=== PATIENT | female | born 2000 | race Caucasian/White ===

== ENCOUNTER 2023-04-28 02:26 | Emergency (ER) | payer MEDICAID, SELFPAY ==
[2023-04-28 02:30] VITALS: BP 135/72; PULSE 77; RESP 16; TEMP 36.3; O2SAT 100; BMI 26.6
--- NOTE | 2023-04-28 02:41 | ED_ITS ---
HPI - Female Genitourinary General Chief complaint: Urogenital-Female Stated complaint: uti Time Seen by Provider: 04/28/23 02:35 Source: patient Mode of arrival: walk-in History of Present Illness HPI Narrative: presents complaining of dysuria that started yesterday AM. History of UTI for past 3 years. Has nausea but not vomiting or fever or flank pain MD elicited complaint: Reports dysuria Related Data Allergies Allergy/AdvReac Type Severity Reaction Status Date / Time Penicillins Allergy Mild Hives Verified 04/28/23 02:36 Review of Systems ROS Status of ROS 10 or more systems reviewed and unremarkable except as noted in history and below PFSH PFS Social History Smoking status: Never smoker Exam Constitutional Vital Signs, click to edit/add: Last Vital Signs Temp 97.4 F L 04/28/23 02:30 Pulse 77 04/28/23 02:30 Resp 16 04/28/23 02:30 BP 135/72 04/28/23 02:30 Pulse Ox 100 04/28/23 02:30 O2 Del Method Room Air 04/28/23 02:30 Common normals: no apparent distress, average body habitus, oriented x3, no limitations, healthy appearing, alert and well nourished Eye Common normals: EOMs intact bilaterally and conjunctivae normal Respiratory Common normals: normal respiratory effort, no retractions, no use of accessory muscles and clear to auscultation bilaterally Cardio Common normals: regular rate, regular rhythm, S1 normal heart sound and S2 normal heart sound GI Common normals: Normal to inspection, nondistended, normoactive bowel sounds present, soft to palpation and non-tender Extremity Common normals: normal to inspection and full ROM Neuro Common normals: oriented x3, CN's II-XII intact bilaterally, moves all extremities, no focal motor deficits and no sensory deficits noted Psych Appearance: grossly normal Course Vital Signs Vital signs: Vital Signs Temperature 97.4 F L 04/28/23 02:30 Pulse Rate 77 04/28/23 02:30 Respiratory Rate 16 04/28/23 02:30 Blood Pressure 135/72 04/28/23 02:30 Pulse Oximetry 100 04/28/23 02:30 Oxygen Delivery Method Room Air 04/28/23 02:30 Temperature 97.4 F L 04/28/23 02:30 Pulse Rate 77 04/28/23 02:30 Respiratory Rate 16 04/28/23 02:30 Blood Pressure 135/72 04/28/23 02:30 Pulse Oximetry 100 04/28/23 02:30 Oxygen Delivery Method Room Air 04/28/23 02:30 MDM - Female Genitourinary MDM Narrative Medical decision making narrative: past history of recurrent UTI. presents with dysuria and nausea. Exam normal. UA with 2-5 WBCs. Patient treated with bactrim ds and zofran and is to follow up with her family doctor Lab Data Labs: Lab Results 04/28/23 Range/Units 02:30 Urine Color Lt. yellow (YELLOW) Urine Clarity Clear (CLEAR) Urine pH 6.0 (5.0-9.0) Ur Specific [place] 1.020 (1.005-1.025) Urine Protein Negative (NEG/TRACE) mg/dL Urine Glucose (UA) Negative (NEGATIVE) mg/dL Urine Ketones Negative (NEGATIVE) mg/dL Urine Occult Blood Negative (NEGATIVE) Urine Nitrite Negative (NEGATIVE) Urine Bilirubin Negative (NEGATIVE) Urine Urobilinogen 0.2 (0.2-1.0) EU/dL Ur Leukocyte Esterase Trace A (NEGATIVE) Urine RBC 0-2 (0-2) #/HPF Urine WBC 2-5 A (NONE SEEN) #/HPF Ur Squamous Epith Cells Few A (NONE/RARE) #/LPF Urine Crystals None seen (None Seen) #/HPF Urine Bacteria Trace A (NONE SEEN) #/HPF Urine Casts None seen (NONE SEEN) #/LPF Urine Mucus None seen (NONE SEEN) Ur Culture Indicated? No Urine HCG, Qual Negative (NEGATIVE) Discharge Plan Discharge Chief Complaint: Urogenital-Female Clinical Impression: Dysuria Patient Disposition: Home, Self-Care Instructions: Dysuria (ED) Additional Instructions: follow up with your doctor for recheck in next 2-3 days Stand Alone Forms: Portal Instructions Referrals: GILES BANSAL [Primary Care Provider] - 1 week
[2023-04-28 02:42] LABS: Bilirubin Urine NEGATIVE (NEGATIVE); Blood Urine NEGATIVE (NEGATIVE); Clarity Urine CLEAR (CLEAR); Color Urine LT. YELLOW (YELLOW); Glucose Urine UA NEGATIVE (NEGATIVE); Ketones Urine NEGATIVE (NEGATIVE); Leukocyte Esterase Urine TRACE (NEGATIVE); Nitrite Urine NEGATIVE (NEGATIVE); Protein Urine NEGATIVE (NEG/TRACE); Urobilinogen Urine 0.2 EU/dL (0.2-1.0)
[2023-04-28 02:45] LABS: Urine Microscopic Indicated YES
[2023-04-28 02:46] LABS: HCG Qualitative Urine* NEGATIVE (NEGATIVE)
[2023-04-28 02:49] LABS: Bacteria Urine TRACE #/HPF (NONE SEEN); Cast Seen? NONE SEEN #/LPF (NONE SEEN); Crystals Seen? None Seen #/HPF (None Seen); Mucus Urine NONE SEEN (NONE SEEN); RBC Urine 0-2 #/HPF (0-2); Squamous Epithelial Cell Urine FEW #/LPF (NONE/RARE); Urine Culture Indicated NO
[2023-04-28] MEDS: ONDANSETRON 4 MG RAPDIS TABLET SL (03:01)
[2023-04-28] MEDS: PHENAZOPYRIDINE 100 MG TABLET 200 MG PO (04:00)
== END 2023-04-28 04:04 | disposition home or self-care (01) ==
PROVIDERS: Emergency Provider Internal Medicine; PCP Family Medicine
DX: R30.0 Dysuria (principal); Z87.440 Personal history of urinary (tract) infections
CPT/HCPCS: 81001; 84703; 99284

== ENCOUNTER 2023-05-29 16:55 | Emergency (ER) | payer MEDICAID, SELFPAY ==
[2023-05-29 17:01] VITALS: BP 128/65; PULSE 66; RESP 18; TEMP 36.4; O2SAT 99; BMI 26.6
--- NOTE | 2023-05-29 17:12 | XR_ITS ---
The [address] [address] Patient Name: GARETT ROCHAR MRN: [facility]:[id number] date: 2000 Sex: F Assigned Patient Location: ER Current Patient Location: ER Accession/Order Number: [id number] Exam Date: 05/29/2023 17:45 Report Date: 05/29/2023 18:05 At the request of: QUEENIE GONZALEZ Procedure: XR lumbar spine 2-3V EXAM: XR lumbar spine 2-3V HISTORY: Pain COMPARISON: None. TECHNIQUE: 3 views FINDINGS: Maintenance of the normal lumbar lordosis.. Vertebral body heights and alignments exhibit no fracture or listhesis. Intervertebral disc space heights are unremarkable. Stool throughout the colon and rectum. XR/XR lumbar spine 2-3V IMPRESSION: Normal lumbar spine x-rays Electronically authenticated by: DORA MOE Date: 05/29/2023 18:05
[2023-05-29 17:29] LABS: Bilirubin Urine NEGATIVE (NEGATIVE); Blood Urine NEGATIVE (NEGATIVE); Clarity Urine CLEAR (CLEAR); Color Urine LT. YELLOW (YELLOW); Glucose Urine UA NEGATIVE (NEGATIVE); Ketones Urine NEGATIVE (NEGATIVE); Leukocyte Esterase Urine NEGATIVE (NEGATIVE); Nitrite Urine NEGATIVE (NEGATIVE); Protein Urine NEGATIVE (NEG/TRACE); Specific Gravity Urine <=1.005 (1.005-1.025); Urobilinogen Urine 0.2 EU/dL (0.2-1.0)
[2023-05-29 17:30] LABS: HCG Qualitative Urine* NEGATIVE (NEGATIVE)
[2023-05-29 17:35] LABS: Bacteria Urine NONE SEEN #/HPF (NONE SEEN); Cast Seen? NONE SEEN #/LPF (NONE SEEN); Crystals Seen? None Seen #/HPF (None Seen); Mucus Urine NONE SEEN (NONE SEEN); RBC Urine NONE SEEN #/HPF (0-2); Squamous Epithelial Cell Urine NONE SEEN #/LPF (NONE/RARE); Urine Culture Indicated NO; WBC Urine NONE SEEN #/HPF (NONE SEEN)
--- NOTE | 2023-05-29 17:35 | ED_ITS ---
HPI - Back Pain/Injury General Chief Complaint: Back Pain/Injury Stated Complaint: Back Pain Time Seen by Provider: 05/29/23 16:56 Source: patient Mode of arrival: walk-in Limitations: no limitations History of Present Illness HPI Narrative: 22-year-old female presents for right lower back pain and it goes down the back of her right leg to her knee. No injury at anytime recently. She states that years ago she did have a back injury many years ago had an MRI. No dysuria or hematuria. It's worse in certain positions. Related Data Previous Rx's Medication Instructions Recorded cyclobenzaprine 10 mg tablet 10 mg PO TID PRN muscle spasm #20 05/29/23 tabs ibuprofen 800 mg tablet 800 mg PO Q8H PRN pain #20 tabs 05/29/23 Allergies Allergy/AdvReac Type Severity Reaction Status Date / Time Penicillins Allergy Mild Hives Verified 05/29/23 17:00 Review of Systems 2 ROS Narrative A ten point review of systems is negative except as noted above. PFSH PFSH Social History Smoking status: Never smoker Exam Narrative Exam Narrative: Nurses note and vital signs reviewed and patient is not hypoxic. General: The patient appears well and in no apparent distress. Patient is resting comfortably on cart. Skin: Warm, dry, no pallor noted. There is no rash noted. Head: Normocephalic, atraumatic Eye: Normal conjunctiva, no drainage Ears, Nose, Mouth, and Throat: oral mucosa is moist. Nares patent. Cardiovascular: Regular Rate and Rhythm Respiratory: Patient is in no distress, no accessory muscle use, lungs are clear to auscultation, no wheezing, rales or rhonchi Back: no bruise or rash. She has some tenderness in her right lower back. GI: soft and nontender Musculoskeletal: The patient has no evidence of calf tenderness, no pitting edema, symmetrical pulses noted bilaterally Neurological: A&O, normal speech Psychiatric: Cooperative Constitutional Vital Signs, click to edit/add: Last Vital Signs Temp 97.6 F 05/29/23 17:01 Pulse 66 05/29/23 17:01 Resp 18 05/29/23 17:01 BP 128/65 05/29/23 17:01 Pulse Ox 99 05/29/23 17:01 O2 Del Method Room Air 05/29/23 17:01 Course Vital Signs Vital signs: Vital Signs Temperature 97.6 F 05/29/23 17:01 Pulse Rate 66 05/29/23 17:01 Respiratory Rate 18 05/29/23 17:01 Blood Pressure 128/65 05/29/23 17:01 Pulse Oximetry 99 05/29/23 17:01 Oxygen Delivery Method Room Air 05/29/23 17:01 Temperature 97.6 F 05/29/23 17:01 Pulse Rate 66 05/29/23 17:01 Respiratory Rate 18 05/29/23 17:01 Blood Pressure 128/65 05/29/23 17:01 Pulse Oximetry 99 05/29/23 17:01 Oxygen Delivery Method Room Air 05/29/23 17:01 MDM - Back Pain/Injury MDM Narrative Medical decision making narrative: Urinalysis and tests are negative. Lumbar films show constipation but no acute findings in the lumbar spine. Findings were discussed with the patient and she'll be treated symptomatically. Treatment diagnosis and follow-up were discussed with the patient. Differential Diagnosis Differential diagnosis: Likely sciatica, strain of lumbar region and other (urinary tract infection) Lab Data Attestation: I reviewed the patient's lab results. Labs: Lab Results 05/29/23 Range/Units 17:23 Urine Color Lt. yellow (YELLOW) Urine Clarity Clear (CLEAR) Urine pH 6.0 (5.0-9.0) Ur Specific [place] <=1.005 A (1.005-1.025) Urine Protein Negative (NEG/TRACE) mg/dL Urine Glucose (UA) Negative (NEGATIVE) mg/dL Urine Ketones Negative (NEGATIVE) mg/dL Urine Occult Blood Negative (NEGATIVE) Urine Nitrite Negative (NEGATIVE) Urine Bilirubin Negative (NEGATIVE) Urine Urobilinogen 0.2 (0.2-1.0) EU/dL Ur Leukocyte Esterase Negative (NEGATIVE) Urine RBC None seen (0-2) #/HPF Urine WBC None seen (NONE SEEN) #/HPF Ur Squamous Epith Cells None seen (NONE/RARE) #/LPF Urine Crystals None seen (None Seen) #/HPF Urine Bacteria None seen (NONE SEEN) #/HPF Urine Casts None seen (NONE SEEN) #/LPF Urine Mucus None seen (NONE SEEN) Ur Culture Indicated? No Urine HCG, Qual Negative (NEGATIVE) Imaging Data lumbar x-rays: Radiologist's impression: Procedure: XR lumbar spine 2-3V EXAM: XR lumbar spine 2-3V HISTORY: Pain COMPARISON: None. TECHNIQUE: 3 views FINDINGS: Maintenance of the normal lumbar lordosis.. Vertebral body heights and alignments exhibit no fracture or listhesis. Intervertebral disc space heights are unremarkable. Stool throughout the colon and rectum. IMPRESSION: Normal lumbar spine x-rays Electronically authenticated by: DORA MOE Date: 05/29/2023 18:05 Discharge Plan Discharge Chief Complaint: Back Pain/Injury Clinical Impression: Low back pain, Constipation Patient Disposition: Home, Self-Care Time of Disposition Decision: 18:19 Condition: Good Mode of Transportation: Private Vehicle Prescriptions / Home Meds: New cyclobenzaprine 10 mg tablet 10 mg PO TID PRN (Reason: muscle spasm) Qty: 20 0RF ibuprofen 800 mg tablet 800 mg PO Q8H PRN (Reason: pain) Qty: 20 0RF Instructions: Constipation (ED), Back Pain (ED) Stand Alone Forms: Portal Instructions Referrals: GILES BANSAL [Primary Care Provider] - 1 week
== END 2023-05-29 18:29 | disposition home or self-care (01) ==
PROVIDERS: Emergency Provider Emergency Medicine; PCP Family Medicine
DX: K59.00 Constipation, unspecified (principal); M54.50 Low back pain, unspecified
CPT/HCPCS: 72100; 81001; 84703; 99284

== ENCOUNTER 2024-01-12 20:19 | Emergency (ER) | payer MEDICAID, SELFPAY ==
[2024-01-12 20:21] VITALS: BP 131/72; PULSE 90; TEMP 36.9; O2SAT 100; BMI 30.9
--- OUTSIDE RECORDS SUMMARY | 2024-01-12 20:24 | XMS_ITS | CCD ---
Author Organization [facility] Care Team Providers Care Founder And President Name Role Phone [place], Moe D Unavailable Unavailable Georgia, Moe D Unavailable Unavailable DUANE BANSAL~[phone] UNKNOWN Unavailable Unavailable DUANE BANSAL~[phone] UNKNOWN Unavailable Unavailable [place], Moe D Unavailable Unavailable Georgia, Moe D Unavailable Unavailable NONE, XXXX Unavailable Unavailable DUANE BANSAL~[phone] UNKNOWN Unavailable Unavailable [place], Moe D Unavailable Unavailable Georgia, Moe D Unavailable Unavailable DUANE BANSAL~[phone] UNKNOWN Unavailable Unavailable Georgia, Moe D Unavailable Unavailable Georgia, Moe D Unavailable Unavailable NONE, XXXX Unavailable Unavailable DUANE BANSAL~[phone] UNKNOWN Unavailable Unavailable ROLF, DR SKAGGS Primary Care Unavailable MARKER, DR FISH Attending Unavailable MARKER, DR FISH Consulting Unavailable MARKER, DR FISH Admitting Unavailable ALFONZO, DR OLIVER Renteria Admitting Unavailable ROLF, DR SKAGGS Primary Care Unavailable ALFONZO, DR OLIVER Renteria Attending Unavailable ALFONZO, DR OLIVER Renteria Consulting Unavailable DO Duane Bansal Primary Care Provider [phone] MD Obie Leos Attending Provider [phone] Duane Bansal Primary Care Unavailable Obie Leos Attending Unavailable Obie Leos Admitting Unavailable Obie Leos Unavailable LAZARO SANTIAGO Attending Unavailable JACOBY GONSALEZ Attending Unavailable DUANE BANSAL Attending Unavailable UNALLOCATED, NOMS PROVIDER Referring Unava ilIGOR Bond Attending Unavailable DUANE BANSAL Attending Unavailable DUANE BANSAL Referring Unavailable Allergies Allergy Classification Reported Allergen(s) Allergy Type Date of Onset Reaction(s) Facility (1 source) Midol Regular; Translations: [Midol Regular] Propensity to adverse reactions (disorder) AOF [facility] Repository (1 source) Sulfamethoxazole / Trimethoprim Drug Allergy 02-29-20 [facility] Repository (1 source) Penicillin Drug Allergy Unknown Codefast Other (1 source) Mydol Propensity to adverse reactions anxiety/panic attack [employer] [facility] [employer] Other Medications Current Medications Medication Drug Class(es) Dates Sig (Normalized) Sig (Original) sprintec 28 0.25-35 mg-mcg tablet (1 source) Progestin, Estrogen Sprintec 28 0.25-35 MG-MCG as directed Orally Active ibuprofen 600 mg oral tablet (1 source) Nonsteroidal Anti-inflammatory Drug Start: 09-03-2017 take 600 mg by mouth twice daily Ibuprofen Active 600 MG PO Twice daily September 03, 2017 12:00am Completed/Discontinued Medications Medication Drug Class(es) Dates Sig (Normalized) Sig (Original) Aircast Sport Ankle Brace/Rght (1 source) Start: 05-15-2015 [employer] Sport Ankle Brace/Rght as directed May, Not-Taking/PRN amoxicillin 500 mg oral capsule (1 source) Penicillin-class Antibacterial Start: 05-15-2015 take 1 capsule by mouth every twelve hours Amoxicillin 500 mg 1 capsule Orally, DO NOT FILL UNTIL 05/18/15 q 12 hrs for 10 day(s) May, Not-Taking/PRN Brompheniramine / Pseudoephedrine (1 source) alpha-Adrenergic Agonist Start: 05-15-2015 take 10 mL by mouth every six hours as needed Bromfed DM 30-2-10 MG/5ML 10 ml as needed Orally every 6 hrs, no other sources of brompheniramine, dextromethorphan, or pseudoephedrine for 3 days May, Not-Taking/PRN Problems Problem Classification Problem Date Documented Da te Episodic/Chronic Abdominal pain (1 source) Abdominal pain; Translations: [Unspecified abdominal pain] 09-03-2017 Episodic Genitourinary symptoms and ill-defined conditions (3 sources) Dysuria; Translations: [DYSURIA] Onset: 06-02-2021 Episodic Other gastrointestinal disorders (1 source) Constipation; Translations: [Constipation, unspecified] 09-03-2017 Episodic Other nervous system disorders (1 source) Other chronic pain; Translations: [Other chronic pain] Onset: 08-11-2023 Chronic Other nervous system disorders (1 source) Chronic pain; Translations: [Other chronic pain] Chronic Other nervous system disorders (1 source) Other chronic pain Chronic Spondylosis; intervertebral disc disorders; other back problems (3 sources) Sacroiliitis, not elsewhere classified; Translations: [Solitary sacroiliitis] Onset: 08-11-2023 Chronic Spondylosis; intervertebral disc disorders; other back problems (2 sources) Dorsalgia, unspecified; Translations: [Dorsalgia, unspecified] Onset: 08-11-2023 Episodic Urinary tract infections (1 source) Urinary tract infection, site not specified; Translations: [UTI SITE NOT SPECIFIED] Onset: 06-03-2021 Episodic Results Test Name Value Interpretation Reference Range Facility XR lumbar spine AP/LAT/FLX/E XTon 08-11-2023 XR lumbar spine AP/LAT/FLX/EXT [facility] [address] XRay Report Signed Patient: Raeann Miranda MR#: [id number] : 2000 Acct:[id number] Age/Sex: 22 / F ADM Date: 08/11/23 Loc: XD Room: Type: [facility] Attending Dr: Obie Leos MD Copies to: Obie Leos MD Ordering Provider: Obie Leos MD Date of Service: 08/11/23 XR/XR lumbar spine AP/LAT/FLX/EXT: Sacroiliitis;Chronic pain;Back pain AP with lateral neutral, flexion and extension views Lumbar Spine HISTORY: Low back pain. COMPARISON: None POSTSURGICAL CHANGES: None BONY ALIGNMENT: Adequate HYPERMOBILITY:No hypermobility LISTHESIS:None FRACTURE: Minor lower lumbar facet degeneration. DEGENERATIVE CHANGES: Mild L5-S1 disc space narrowing. SOFT TISSUES: Unremarkable BONY MINERALIZATION:Adequate XR/XR lumbar spine AP/LAT/FLX/EXT IMPRESSION: No hypermobility. Mild lower lumbar degenerative change Impression dictated by: Ron Her M.D.08/11/2023 5:28 PM Dictation Location: [place] [address] Transcribed By: RAYMOND 08/11/231727 Dictated By: Ron Her DO 08/11/23 1718 Signed By: 08/11/23 1728 Normal [facility] CULTURE URINEon 06-02-2021 CULTURE URINE Culture Observations : LIGHT GROWTH OF MIXED GENITAL LOUISE. NO POTENTIAL PATHOGENS SEEN. Normal [facility] Comment on above: Performed By: #### U RCX #### [facility] [address] [address] [address] Juni Kumar ER URINE PROFILEon Bilirubin Ql (U) Negative Normal NEGATIVE [facility] Comment on above: Performed By: #### P REGU, UMICRO, ERUR #### [facility] [address] [address] [address] Juni Kumar Clarity (U) CLEAR Normal CLEAR [facility] Comment on above: Performed By: #### P REGU, UMICRO, ERUR #### [facility] [address] [address] [address] Juni Kumar Color (U) LT. YELLOW Normal YELLOW [facility] Comment on above: Performed By: #### P REGU, UMICRO, ERUR #### [facility] [address] [address] [address] Juni ADAMS A micrscopic examination will be performed if indicated. Normal [facility] Comment on above: Performed By: #### P REGU, UMICRO, ERUR #### [facility] [address] [address] [address] Juni Kumar Glucose Ql (U) Negative Normal NEGATIVE [facility] Comment on above: Performed By: #### P REGU, UMICRO, ERUR #### [facility] [address] [address] [address] Juni Kumar Hemoglobin Ql (U) MODERATE Abnormal NEGATIVE [facility] Comment on above: Performed By: #### P REGU, UMICRO, ERUR #### [facility] [address] [address] [address] Juni Kumar Ketones Ql (U) Negative Normal NEGATIVE [facility] Comment on above: Performed By: #### P REGU, UMICRO, ERUR #### [facility] [address] [address] [address] Juni Kumar LEUKOCYTES MODERATE Abnormal NEGATIVE [facility] Comment on above: Performed By: #### P REGU, UMICRO, ERUR #### [facility] [address] [address] [address] Juni Kumar Nitrite Ql (U) Negative Normal NEGATIVE [facility] Comment on above: Performed By: #### P REGU, UMICRO, ERUR #### [facility] [address] [address] [address] Juni Kumar pH (U) 6.5 [pH] Normal 5-9 [facility] Comment on above: Performed By: #### P REGU, UMICRO, ERUR #### [facility] [address] [address] [address] Juni Kumar SPEC GRAVITY <=1.005 Abnormal 1.005-<=1.025 [facility] Comment on above: Performed By: #### P REGU, UMICRO, ERUR #### [facility] [address] [address] [address] Juni Kumar UA PROTEIN Negative Normal NEGATIVE/ TRACE [facility] Comment on above: Performed By: #### P REGU, UMICRO, ERUR #### [facility] [address] [address] [address] Juni Kumar UR MICRO IND INDICATED Normal [facility] Comment on above: Performed By: #### P REGU, UMICRO, ERUR #### [facility] [address] [address] [address] Juni Kumar Urobilinogen Qn (U) 0.2 {Nicholas'U}/dL Normal 0.2 - 1. 0 [facility] Comment on above: Performed By: #### P REGU, UMICRO, ERUR #### [facility] [address] [address] [address] Juni Kumar URon 06-02-2021 , QUAL Negative Normal NEGATIVE [facility] Comment on above: Performed By: #### P REGU, UMICRO, ERUR #### [facility] [address] [address] [address] Juni Kumar URINE MICROSCOPIC ONLYon BACTERIA TRACE Abnormal NONE SEEN [facility] Comment on above: Performed By: #### P REGU, UMICRO, ERUR #### [facility] [address] [address] [address] Juni Kumar Bacteria identified Cx Nom (U) INDICATED Normal [facility] Comment on above: Performed By: #### P REGU, UMICRO, ERUR #### [facility] [address] [address] [address] Juni Kumar CAST NONE SEEN Normal NONE SEEN [facility] Comment on above: Performed By: #### P REGU, UMICRO, ERUR #### [facility] [address] [address] [address] Juni Kumar Crystals LM Nom (Urine sed) NONE SEEN Normal NONE SEEN [facility] Comment on above: Performed By: #### P REGU, UMICRO, ERUR #### [facility] [address] [address] [address] Juni Kumar Epithelial cells LM Ql (Urine sed) FEW Abnormal NONE SEEN /RARE [facility] Comment on above: Performed By: #### P REGU, UMICRO, ERUR #### [facility] [address] [address] [address] Juni Kumar MUCOUS NONE SEEN Normal NONE SEEN [facility] Comment on above: Performed By: #### P REGU, UMICRO, ERUR #### [facility] [address] [address] [address] Juni Kumar RBC 5-10 Abnormal 0-2 [facility] Comment on above: Performed By: #### P REGU, UMICRO, ERUR #### [facility] [address] [address] [address] Juni Kumar WBC 20-50 Abnormal NONE SEEN [facility] Comment on above: Performed By: #### P REINA LIU ERUR #### [facility] [address] [place], [place] [id number] Dr. Juni Kumar CULTURE URINEon 11-16-2020 CULTURE URINE Isolate 1 Escherichia coli >100,000 cfu/ml of ORGANISM 1 Escherichia coli ANTIBIOTIC M.I.C RX STATUS Ampicillin 4 S F Ampicillin/Sulbactam <=2 S F Piperacillin/Tazobactam <=4 S F Cefazolin <=4 S F Ceftazidime <=1 S F Ceftriaxone <=1 S F Ertapenem <=0.5 S F Imipenem <=0.25 S F Amikacin <=2 S F Gentamicin <=1 S F Tobramycin <=1 S F Ciprofloxacin <=0.25 S F Levofloxacin <=0.12 S F Nitrofurantoin <=16 S F Trimethoprim/Sulfametho xazole <=20 S F Normal [facility] Comment on above: Performed By: #### U RCX #### [facility] [address] [place] [address] Brook Kelley CBC AUTO DIFFon 11-14-2020 BASO # 0.0 103/ul Normal 0.0-0.1 [facility] Comment on above: Performed By: #### C BC #### [facility] [address] [place], [place] [address] Brook Kelley Basophils/100 WBC (Bld) 0.4 % Normal 0.2-2.0 [facility] Comment on above: Performed By: #### C BC #### [facility] [address] [place], [place] [address] Brook Kelley EO # 0.1 103/ul Normal 0.0-0.7 [facility] Comment on above: Performed By: #### C BC #### [facility] [address] [place], [place] [address] Brook Kelley Eosinophils/100 WBC (Bld) 1.7 % Normal 0.9-7.0 [facility] Comment on above: Performed By: #### C BC #### [facility] [address] [place], [place] [address] Brook Kelley Erythrocyte distribution width (RBC) [Ratio] 17.0 % Critically high 11.0-15.0 [facility] Comment on above: Performed By: #### C BC #### [facility] [address] [place] [address] Brook Benson Hematocrit (Bld) [Volume fraction] 33.8 % Critically low 36.0-48.0 [facility] Comment on above: Performed By: #### C BC #### [facility] [address] [place] [address] Brook Benson Hemoglobin (Bld) [Mass/Vol] 9.6 g/dL Critically low 12.0-16.0 [facility] Comment on above: Performed By: #### C BC #### [facility] [address] [place] [address] Brooklarisa Benson IG # 0.02 10e3/ul Normal 0.00-0.03 [facility] Comment on above: Performed By: #### C BC #### [facility] [address] [place] [address] Brook Benson IG % 0.3 % Normal 0.0-0.5 [facility] Comment on above: Performed By: #### C BC #### [facility] [address] [place] [address] Brook Kelley LYMPH # 1.6 103/ul Normal 1.2-3.8 [facility] Comment on above: Performed By: #### C BC #### [facility] [address] [place] [address] Brook Benson Lymphocytes/100 WBC (Bld) 21.6 % Normal 20.5-60.0 [facility] Comment on above: Performed By: #### C BC #### [facility] [address] [place] [address] Brook Benson MANUAL DIFF REQ NO Normal [facility] Comment on above: Performed By: #### C BC #### [facility] [address] [place] [address] Brook Benson MCH (RBC) [Entitic mass] 21.1 pg Critically low 26.7-34.0 [facility] Comment on above: Performed By: #### C BC #### [facility] [address] [id number] Brook Benson MCHC (RBC) [Mass/Vol] 28.4 g/dL Critically low 29.9-35.2 [facility] Comment on above: Performed By: #### C BC #### [facility] [address] [place] [address] Brook Benson MCV (RBC) [Entitic vol] 74.4 fL Critically low 79.1-95.6 [facility] Comment on above: Performed By: #### C BC #### [facility] [address] [place] [address] Brook Benson MONO # 0.7 103/ul Normal 0.3-0.8 [facility] Comment on above: Performed By: #### C BC #### [facility] [address] [place] [address] Brook Kelley Monocytes/100 WBC (Bld) 9.6 % Normal 1.7-12.0 [facility] Comment on above: Performed By: #### C BC #### [facility] [address] [place] [address] Brook Benson NEUT # 5.0 103/ul Normal 1.4-6.5 [facility] Comment on above: Performed By: #### C BC #### [facility] [address] [place] [address] Broko Kelley Neutrophils/100 WBC (Bld) 66.4 % Normal 43.0-75.0 [facility] Comment on above: Performed By: #### C BC #### [facility] [address] [place], [place] [address] Brooklarisa Benson Platelet mean volume (Bld) [Entitic vol] 10.6 fL Normal 9.5-13.5 [facility] Comment on above: Performed By: #### C BC #### [facility] [address] [place], [place] [address] Brook Kelley PLT 269 103/ul Normal 150-450 [facility] Comment on above: Performed By: #### C BC #### [facility] [address] [place] [address] Brook Kelley RBC 4.54 106/ul Normal 3.40-5.30 [facility] Comment on above: Performed By: #### C BC #### [facility] [address] [place] [address] Brook Kelley WBC 7.6 103/ul Normal 4.0-11.0 [facility] Comment on above: Performed By: #### C BC #### [facility] [address] [place] [address] Brook Kelley ER URINE PROFILEon 1 Bilirubin Ql (U) Negative Normal NEGATIVE [facility] Comment on above: Performed By: #### U MICRO, ERUR #### [facility] [address] [place] [address] Brook Kelley Clarity (U) CLEAR Normal CLEAR [facility] Comment on above: Performed By: #### U MICRO, ERUR #### [facility] [address] [place] [address] Brook Kelley Color (U) DK. ORANGE Abnormal YELLOW [facility] Comment on above: Performed By: #### U MICRO, ERUR #### [facility] [address] [place] [address] Brook Kelley ERUAHD A micrscopic examination will be performed if indicated. Normal [facility] Comment on above: Performed By: #### U MICRO, ERUR #### [facility] [address] [place] [address] Brook Kelley Glucose Ql (U) Negative Normal NEGATIVE [facility] Comment on above: Performed By: #### U MICRO, ERUR #### [facility] [address] [place] [address] Brook Kelley Hemoglobin Ql (U) MODERATE Abnormal NEGATIVE [facility] Comment on above: Performed By: #### U MICRO, ERUR #### [facility] [address] [place] [address] Brook Kelley Ketones Ql (U) Negative Normal NEGATIVE [facility] Comment on above: Performed By: #### U MICRO, ERUR #### [facility] [address] [place], [place] [address] Brook Kelley LEUKOCYTES LARGE Abnormal NEGATIVE [facility] Comment on above: Performed By: #### U MICRO, ERUR #### [facility] [address] [place] [address] Brook Kelley Nitrite Ql (U) Positive Abnormal NEGATIVE [facility] Comment on above: Performed By: #### U MICRO, ERUR #### [facility] [address] [place] [address] Brook Kelley pH (U) 7.0 [pH] Normal 5-9 [facility] Comment on above: Performed By: #### U MICRO, ERUR #### [facility] [address] [place] [address] Brook Kelley Protein (U) [Mass/Vol] 100 mg/dL Abnormal NEGATIVE/ TRACE [facility] Comment on above: Performed By: #### U MICRO, ERUR #### [facility] [address] [place] [address] Brook Kelley SPEC GRAVITY <=1.005 Abnormal 1.005-<=1.025 [facility] Comment on above: Performed By: #### U MICRO, ERUR #### [facility] [address] [place] [address] Brook Kelley UR MICRO IND INDICATED Normal [facility] Comment on above: Performed By: #### U MICRO, ERUR #### [facility] [address] [place] [address] Brook Kelley Urobilinogen Qn (U) 1.0 {Nicholas'U}/dL Normal 0.2 - 1. 0 [facility] Comment on above: Performed By: #### U MICRO, ERUR #### [facility] [address] [place] [address] Brook Kelley PREG HCG QUALon 11-14-2020 , QUAL Negative Normal NEGATIVE [facility] Comment on above: Performed By: #### P REG #### [facility] [address] [address] Brooklarisa Nicken PROF 14(COMP METB)on 021 Albumin [Mass/Vol] 3.9 g/dL Normal 3.5-5.0 [place] Comment on above: Performed By: #### C MP #### [facility] [address] [place], [place] [address] Brook Kelley Albumin/Globulin [Mass ratio] 0.9 {ratio} Normal [facility] Comment on above: Performed By: #### C MP #### [facility] [address] [place], [place] [address] Brook Kelley ALP [Catalytic activity/Vol] 60 U/L Critically low 65-260 [facility] Comment on above: Performed By: #### C MP #### [facility] [address] [place] [address] Brook Kelley ALT [Catalytic activity/Vol] 18 U/L Normal 9-52 [facility] Comment on above: Performed By: #### C MP #### [facility] [address] [place], [place] [address] Brook Kelley Anion gap [Moles/Vol] 14.5 mmol/L Normal [facility] Comment on above: Performed By: #### C MP #### [facility] [address] [place], [place] [address] Brook Kelley AST [Catalytic activity/Vol] 18 U/L Normal 14-36 [facility] Comment on above: Performed By: #### C MP #### [facility] [address] [place], [place] [address] Brook Kelley Bilirubin [Mass/Vol] 0.3 mg/dL Normal 0.2-1.3 [facility] Comment on above: Performed By: #### C MP #### [facility] [address] [place], [place] [address] Brook Kelley Calcium [Mass/Vol] 9.1 mg/dL Normal 8.4-10.2 [facility] Comment on above: Performed By: #### C MP #### [facility] [address] [place], [place] [address] Brook Kelley Chloride [Moles/Vol] 102 mmol/L Normal 98-107 [facility] Comment on above: Performed By: #### C MP #### [facility] [address] [address] Brook Kelley CO2 [Moles/Vol] 26.1 mmol/L Normal 22.0-30.0 [facility] Comment on above: Performed By: #### C MP #### [facility] [address] [address] Brook Kelley Creatinine [Mass/Vol] 0.91 mg/dL Normal 0.52-1.04 [facility] Comment on above: Performed By: #### C MP #### [facility] [address] [place] [address] Brook Kelley EGFR-AF SOMALI >60 Normal >=60 [facility] Comment on above: Performed By: #### C MP #### [facility] [address] [place] [address] Brook Kelley EGFR-NON AF SOMALI >60 Normal >=60 [facility] Comment on above: Performed By: #### C MP #### [facility] [address] [id number] Brook Kelley Globulin (S) [Mass/Vol] 4.5 g/dL Normal [facility] Comment on above: Performed By: #### C MP #### [facility] [address] [place] [address] Brook Kelley Glucose [Mass/Vol] 128 mg/dL Critically high 74-106 [facility] Comment on above: Performed By: #### C MP #### [facility] [address] [place], [place] [address] Brook Kelley Potassium [Moles/Vol] 3.6 mmol/L Normal 3.4-5.0 [facility] Comment on above: Performed By: #### C MP #### [facility] [address] [place], [place] [address] Brook Kelley Protein [Mass/Vol] 8.4 g/dL Critically high 6.1-8.2 [facility] Comment on above: Performed By: #### C MP #### [facility] [address] [address] Brook Kelley Sodium [Moles/Vol] 139 mmol/L Normal 137-145 [facility] Comment on above: Performed By: #### C MP #### [facility] [address] [address] Brook Kelley Urea nitrogen [Mass/Vol] 7.0 mg/dL Normal 6.4-19.3 [facility] Comment on above: Performed By: #### C MP #### [facility] [address] [place] [address] Brook Kelley Urea nitrogen/Creatinine [Mass ratio] 7.7 mg/mg Normal [facility] Comment on above: Performed By: #### C MP #### [facility] [address] [place] [address] Brook Kelley URINE MICROSCOPIC ONLYon BACTERIA MODERATE Abnormal NONE SEEN [facility] Comment on above: Performed By: #### U MICRO, ERUR #### [facility] [address] [place] [address] Brook Kelley Bacteria identified Cx Nom (U) INDICATED Normal [facility] Comment on above: Performed By: #### U MICRO, ERUR #### [facility] [address] [place] [address] Brook Kelley CAST NONE SEEN Normal NONE SEEN [facility] Comment on above: Performed By: #### U MICRO, ERUR #### [facility] [address] [place] [address] Brook Kelley Crystals LM Nom (Urine sed) NONE SEEN Normal NONE SEEN [facility] Comment on above: Performed By: #### U MICRO, ERUR #### [facility] [address] [place], [place] [address] Brook Kelley Epithelial cells LM Ql (Urine sed) FEW Abnormal NONE SEEN /RARE [facility] Comment on above: Performed By: #### U MICRO, ERUR #### [facility] [address] [place] [address] Brook Kelley MUCOUS TRACE Abnormal NONE SEEN [facility] Comment on above: Performed By: #### U MICRO, ERUR #### [facility] [address] [place], [place] [address] Brook Nicken RBC 2-5 Abnormal 0-2 [facility] Comment on above: Performed By: #### U MICRO, ERUR #### [facility] [address] [place], [place] [address] Brook Benson WBC 10-20 Abnormal NONE SEEN [facility] Comment on above: Performed By: #### U MICRO, ERUR #### [facility] [address] [id number] Brook [facility] Consultation Noteon 08-25-19 18 Consultation Note HOSPITAL REGULATIONS : ALL Positive Important Negative Findings Shall Be Recorded.Date of 08/12/2017Consultation: Attending Duane Bansal D.O.Physician:Isadora Ho M.D.Physician:FOLLOWUP VISITCHIEF COMPLAINT: Low back pain.HISTORY OF PRESENT ILLNESS: A 16-year-old female following up from lumbarfacet blocks. Unfortunately did not experience any short-term relief withthe injection. She tolerated the procedure well. She continues to have5/10 pain in the low back that radiates into the hips. She is here withher mother. The mother wonders whether or not her hips are the problem.The patient does not have any pain with range of motion of her hips andthere was inciting injury regarding the hips. They are here to discussfurther treatment options. Pain is described as aching. It is worse withsitting and changing positions and better sometimes with relaxing andibuprofen. They never did try the oxaprozin that was prescribed instead ofthe ibuprofen.Past medical history, family history, surgical history, social history,medication list, allergies and a complete review of systems were obtainedand reviewed. Pertinent findings are noted in the HISTORY OF PRESENTILLNESS.PHYSICAL EXAMINATION: No acute distress. Alert and oriented x3.Injection sites are healed. Great range of motion of both hips withoutpain. Intact strength throughout bilateral lower extremities. Normalgait.ASSESSMENT/P RUPINDER: This is a 16-year-old female with chronic low back painthat is of unknown etiology. At this point, it does not seem to bediscogenic or facet mediated based on imaging studies as well as resultsfrom the facet blocks. I had a long conversation with the patient and hermother today about potential treatment options. I recommend [facility] aphysical medicine program [facility] They bring up managed care specialist which I think isreasonable as well since this is closer to her home and the patient doesnot like leaving her home area. They will try the chiropractor first.They will followup with me on an as-needed basis. Call the clinic with anyquestions or concerns.Moe Ho M.D.glsDictated: 08/12/2017 #[id number]: 08/20/2017 #[id number]: Duane Bansal D.O.Moe Ho M.D. [facility] Comment on above: Result Comment: Elec tronically Signed By: Georgia MUNOZ, Moe Freeman\.br\Date and Time Signed: 08/25/17 15:49 EST Coding Summary.on 08-24-2017 Coding Summary. 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 However, the narrative phrase printed from the coding software may appear abbreviated, or result in slightly different terminology. Coded By: Vivian Nolan Date Saved: 08/24/2017 08:45 am [facility] Coding Summary.on 07-28-2017 Coding Summary. CODING DATE: [facility] STATUS: Home (Routine DC) PAYOR: Medicaid EAPG DESCRIPTION 0220 LEVEL II NERVOUS SYSTEM INJECTIONS, STIMULATIONS OR CRANIAL TAP 0490 INCIDENTAL TO MEDICAL, SIGNIFICANT PROCEDURE OR THERAPY VISIT ADMIT DX: REASON FOR VISIT DX: M47.816 Spondylosis without myelopathy or radiculopathy, lumbar region FINAL DX: PRINCIPAL: M47.816 Spondylosis without myelopathy or radiculopathy, lumbar region SECONDARY: PYMT PROC EAPG STAT DESCRIPTION DOCTOR NAME DATE NOTE: The code number assigned matches the documented diagnosis and / or procedure in the patient's chart. However, the narrative phrase printed from the coding software may appear abbreviated, or result in slightly different terminology. Coded By: Eloina Vaughn Date Saved: 07/28/2017 11:03 am Normal [facility] Main OR Intraoperative Recor don 07-26-2017 Main OR Intraoperative Record IntraOp Document Type FTPM Summary Primary Physician: Moe Ho MD Finalized Date/Time: 07/26/17 14:40:50 Pt. Name: RAEANN MIRANDA /Sex: 2000 Female Med Rec #: [id number] Physician: Moe Ho MD Financial #: [id number] Pt. Type: P Room/Bed: / Admit/Disch: 07/26/17 13:20:01 - Institution: Case Times FTPM Entry 1 Patient Times In Room 07/26/17 14:33:00 Out Room 07/26/17 14:42:00 Procedure Times Start 07/26/17 14:36:00 Stop 07/26/17 14:40:00 Anesthesia Times Last Modified By: Crystal Mejía RN 07/26/17 14:40:25 General Comments: 114/72 16 100% 111 Case Attendance FTPM Entry 1 Entry 2 Entry 3 Case Attendee NONE, XXXX Georgia MUNOZ, Pavel Turcios Role Performed Anesthesiologist of Surgeon - Primary Esol Teacher Assistant Record Time In 07/26/17 14:33:00 07/26/17 14:33:00 07/26/17 14:33:00 Time Out 07/26/17 14:42:00 07/26/17 14:42:00 07/26/17 14:42:00 Procedure MEDIAL BRANCH MEDIAL BRANCH MEDIAL BRANCH BLOCK(Bilateral) BLOCK(Bilateral) BLOCK(Bilateral) Comments Last Modified By: Alfonzo SALOMON, Crystal Mejía RN, Crystal Roberts RN 07/26/17 14:40:27 07/26/17 14:40:27 07/26/17 14:40:27 Entry 4 Entry 5 Entry 6 Case Attendee Alfonzo SALOMON, Crystal Ceja RN, Mireya Caceres Transport/Mellowing Machine OperatorSheila Role Performed Occupational Health Nurse Manager - Primary Scrub - Primary Staff - Other Time In 07/26/17 14:33:00 07/26/17 14:33:00 07/26/17 14:33:00 Time Out 07/26/17 14:42:00 07/26/17 14:42:00 07/26/17 14:42:00 Procedure MEDIAL BRANCH MEDIAL BRANCH MEDIAL BRANCH BLOCK(Bilateral) BLOCK(Bilateral) BLOCK(Bilateral) Comments Last Modified By: Crystal Mejía RN, RN, Crystal Roberts RN 07/26/17 14:40:27 07/26/17 14:40:27 07/26/17 14:40:27 Perioperative Protocols FTPM Pre-Care Text: Implements protective measures prior to operative or invasive procedure, confirms identity before the operative or invasive procedure, verifies operative procedure, surgical site, and laterality Entry 1 Procedure(s) MEDIAL BRANCH Patient Identity Birthday, ID Band BLOCK(Bilateral) Verified (select at Check, Patient least 2): Participation Consents / H and P Surgery/Procedure Operative Site Present Verified Consent Marking Verified Surgical Site Yes Laterality Verified Yes Verified Procedure Verified Yes Correct Patient Yes Position Verified Availability Equipment, Medication, Prep Dry Yes Verified (If X-ray Applicable) PreOp Antibiotic No Time Out NONE, XXXX, Alfonzo SALOMON, Given Participants Marcial Rojas RN, Georgia Gomes MD, Moe Freeman Time Out Complete 07/26/17 14:34:00 Outcomes Met? Yes Last Modified By: Crystal Mejía RN 07/26/17 14:40:46 Post-Care Text: The patient is free from signs and symptoms of injury caused by extraneous objects Allergy Information FTPM Pre-Care Text: Verifies allergies Entry 1 Allergies Reviewed? Yes Allergies Reviewed Self/Patient With Outcomes Met? Yes Last Modified By: Crystal Mejía RN 07/26/17 13:57:49 Post-Care Text: The patient received appropriate medication(s) safely administered during the perioperative period Surgical Procedures FTPM Entry 1 Procedure Description Procedure MEDIAL BRANCH BLOCK Modifiers Bilateral Surgeon Description L3/4, L4/5, L5/S1 FACET MBB Primary Procedure Yes Primary Surgeon Moe Ho MD Start 07/26/17 14:36:00 Stop 07/26/17 14:40:00 Anesthesia Type None Surgical Service Pain Management Wound Class 1 - Clean Last Modified By: Crystal Mejía RN 07/26/17 14:40:32 General Case Data FTPM Pre-Care Text: Classifies surgical wound, implements aseptic technique, initiates traffic control Entry 1 Case Information OR Pain Proc Room Case Level Level 2 Wound Class 1 - Clean Specialty Pain Management Preop Diagnosis M47.816 Postop Same As Preop Yes Postop Diagnosis M47.816 Outcomes Met? Yes Last Modified By: Crystal Mejía RN 07/26/17 13:58:04 Post-Care Text: The patient is free from signs and symptoms of infection Skin Assessment (Pre Procedure) FTPM Pre-Care Text: Implements protective measures to prevent skin/ tissue injury due to thermal or mechanical sources Evaluates for signs and symptoms of physical injury to skin and tissue Entry 1 Skin Integrity Intact, Gap, Warm, and Skin Abnormality No Dry Outcomes Met? Yes Last Modified By: Crystal Mejía RN 07/26/17 13:58:20 Post-Care Text: The patient is free from signs and symptoms of injury caused by extraneous objects Patient Positioning FTPM Pre-Care Text: Identifies physical alterations that require additional precautions for procedure-specific positioning, verifies presence of prosthetics or corrective devices, positions the patient, evaluates the patient for signs and symptoms of injury as a result of positioning Entry 1 Procedure MEDIAL BRANCH Body Position Prone BLOCK(Bilateral) Feet Uncrossed? Yes Left Arm Position Resting at Side Right Arm Position Resting at Side Left Leg Position Extended Right Leg Position Extended Positioning Device Pillow Under Head Large, Safety Strap, Pillow Large Under Knees Press Points Checked Yes By Crystal Mejía RN, NONE, XXXX Outcomes Met? Yes Last Modified By: Crystal Mejía RN 07/26/17 13:58:30 Post-Care Text: The patient is free from signs and symptoms of injury related to positioning Transport To OR FTPM Pre-Care Text: Transports according to individual needs. Evaluates for signs and symptoms of skin and tissue injury as a result of transfer or transport Entry 1 Via Cart By Crystal Mejía RN Safety Precautions Safety Strap, Side Outcomes Met? Yes Rails Up Last Modified By: Crystal Mejía RN 07/26/17 13:58:46 Post-Care Text: The patient is free from signs and symptoms of injury related to transfer/transport Skin Prep FTPM Pre-Care Text: Performs skin preparations Entry 1 Procedure MEDIAL BRANCH Prep Area BLOCK INJECTION SITE BLOCK(Bilateral) Prep Agents Chloraprep/Dry Prior to Draping Hair Removal Methods Not Indicated By Mireya Ceja RN Outcomes Met? Yes Last Modified By: Crystal Mejía RN 07/26/17 13:58:53 Post-Care Text: The patient is free from signs and symptoms of infection Departure From OR FTPM Pre-Care Text: Transports according to individual needs. Evaluates for signs and symptoms of skin and tissue injury as a result of transfer or transport. Entry 1 Via Cart Safety Precautions Safety Strap, Side Rails Up PostOp Destination PACU Transported By Crystal Mejía RN Patient Status Stable Report Given Dayanara Roman RN To/Hand Off Communication Skin. Condition Dry, Intact Airway Maintenance Oxygen in Use? No Outcomes Met? Yes Last Modified By: Crystal Mejía RN 07/26/17 13:59:09 Post-Care Text: The patient is free from signs and symptoms of injury related to transfer/transport Dressing/Packing FTPM Pre-Care Text: Administers care to wound sites Entry 1 Type Dressing Site and Details OPSITE AND 2X2 TO INJECTION SITE Outcomes Met? Yes Last Modified By: Crystal Mejía RN 07/26/17 13:59:18 Post-Care Text: The patient is free from signs and symptoms of infection Medication Administration FTPM Pre-Care Text: Verifies allergies, administers prescribed medications and solutions, administers prescribed antibiotic therapy and immunizing agents as ordered, evaluates response to medications Administers prescribed medications and solutions Entry 1 Route of Admin Block Expiration Date Yes Verified Ordered By Moe Ho MD Transcribed/To Crystal Mejía RN Field By Administered By Moe Ho MD Outcomes Met? Yes Last Modified By: Crystal Mejía RN 07/26/17 13:59:26 Post-Care Text: The patient received appropriate medication(s) safely administered during the perioperative period X-Rays and Images FTPM Pre-Care Text: Assess history of previous radiation exposure and implements protective measures Entry 1 X-Ray Type C-Arm Contrast Used? Yes Outcomes Met? Yes Last Modified By: Crystal Mejía RN 07/26/17 13:59:38 Post-Care Text: The patient is free from signs and symptoms of radiation injury Case Comments Finalized By: Crystal Mejía RN Document Signatures Signed By: Crystal Mejía RN 07/26/17 14:40 Normal [facility] Main OR Preoperative Recordo n 07-26-2017 Main OR Preoperative Record Holding Area Document Type FTPM Summary Primary Physician: Moe Ho MD Finalized Date/Time: 07/26/17 13:31:05 Pt. Name: RAEANN MIRANDA /Sex: 2000 Female Med Rec #: [id number] Physician: Moe Ho MD Financial #: [id number] Pt. Type: P Room/Bed: / Admit/Disch: 07/26/17 13:20:01 - Institution: Case Times Holding FTPM Pre-Care Text: Verifies consent for planned procedure, identifies individual values and wishes concerning care, includes family members in perioperative teaching Secures patient's records' belongings, and valuables, maintains patient's dignity and privacy, and maintains patient confidentiality Entry 1 In Holding 07/26/17 13:28:00 Outcomes Met? Yes Last Modified By: Elena Haji RN 07/26/17 13:28:59 Post-Care Text: The patient participates in decisions affecting his or her perioperative plan of care The patient's right to privacy is maintained Surgery Checklist FTPM Entry 1 Patient Birthday, ID Band Procedure History and Physical, Identification: Check, Patient Verification: Surgical Consent, With Participation Patient NPO after Midnight: n/a Personal Items: Jewelry Personal Items bracelets Complaints of Pain: Yes Comment: Pain Comment: 09/18 b/l lower back Operative Site Yes Marking: Marked By: dr ho Availability Equipment, X-Ray Verified: Does Patient Smoke No Patient states Yes Comment - Adult smita mother postop adult Supervision supervision available Case Cancelled in No Holding Area see comments below for reason Last Modified By: Elena Haji RN 07/26/17 13:30:58 General Comments: grilled cheese at 1100 and tea Finalized By: Elena Haji RN Document Signatures Signed By: Elena Haji RN 07/26/17 13:31 Normal [facility] Operative Reporton 8 Operative Report Patient: BROCK MIRANDA Age: 16 years Sex: Female : 2000 Associated Diagnoses: None Author: Moe Ho MD Procedure Procedure: Lumbar Facet Medial Branch Blocks to the Bilateral L3/4, L4/5, and L5/S1 Facet Joints with Fluoroscopic Guidance Diagnosis: Lumbar Spondylosis without myelopathyAnesthesia: Local The patient was identified in the pre-op area. The procedure, including risks benefits and alternatives was discussed with the patient. The patient agreed to proceed. Informed consent was obtained and the site(s) marked. The patient was brought to the procedure room and placed in the prone position with padding under the abdomen to reduce lumbar lordosis. Time out was performed. The back was prepped and draped in sterile fashion. Skin and subcutaneous tissues were anesthetized with 6 mL of Lidocaine 2% through a 25G needle. 22G spinal needles were then advanced under fluoroscopic guidance to the appropriate locations. 0.3 mL of Isovue contrast was injected at each level demonstrating appropriate spread without vascular uptake. After confirmation of negative aspiration, 0.5mL of 0.5% bupivcaine was injected at each level. The needles were removed and bandages applied. The patient was brought to the recovery area in stable condition and then monitored for an appropriate period of time. The patient was discharged home in good condition with post-procedure instructions. No apparent complications. Epidural injection procedure Physical Exam: vital signs Vital Signs 07/26/2017 13:27 EST Heart Rate Monitored 91 bpm HI SpO2 100 % 07/26/2017 13:27 EST Respiratory Rate 16 br/min 07/26/2017 13:27 EST Temperature Oral 36.6 DegC 07/26/2017 13:27 EST Systolic Blood Pressure 135 mmHg Diastolic Blood Pressure 83 mmHg Mean Arterial Pressure, Monitered 100 mmHg . Normal [facility] Comment on above: Result Comment: Elec tronically Signed By: Moe Ho MD\.br\Date and Time Signed: 07/26/17 14:41 EST Message - General Officeon 0 07-23-2017 Message - General Office om: Sherlyn AmosBat Lathe OperatorJody Mesa To: Moe Ho MD; Sent: 07/21/2017 14:09:07 ESTSubject: increased pain Patients mother called and stated that patient is c/o increased pain for the last 2 days. Patient is taking ibuprofen 600 mg TID without relief and the mother is questioning if you could prescribe her something stronger such as tramadol. Patient is scheduled for an injection on 07/26/2017. ---------From: Moe Ho MD To: [facility].Jody; [facility] Pain Nursing Inbox; Sent: 07/21/2017 15:33:23 ESTSubject: RE: increased pain I do not recommend opioids for her type of pain and considering her age. Tramadol is an opioid. Can try a different NSAID such as meloxicam or oxaprozin. Thanks. -----From: [facility] Lathe OperatorJody Mesa ([facility] Pain Nursing Inbox) To: [facility] Pain Nursing Inbox; Sent: 07/21/2017 15:40:06 ESTSubject: RE: increased pain called patient, left a message on voice mail for parent to return the call for message below ---From: [facility] HospitalBat Lathe OperatorJody Mesa ([facility] Pain Nursing Inbox) To: Moe Ho MD; Sent: 07/22/2017 10:03:02 ESTSubject: NSAID Called patient and spoke to patients mother, explained to her that Dr. Ho did not want to prescribe an opioid to patient but did offer a different NSAID. Patients mother stated that she would like to try a different NSAID and ok to prescribe which ever one preferred by Dr. oH. Notified patients mother that someone would contact her after addressed by Dr. Ho. ------From: Moe Ho MD To: [facility] Pain Nursing Inbox; Sent: 07/23/2017 07:54:48 ESTSubject: RE: NSAID Sent in Daypro Rx. She is stop all other NSAIDS. thanks. -----From: Mireya Ceja RN ([facility] Pain Nursing Inbox) To: Mireya Ceja RN; Sent: 07/23/2017 10:58:40 ESTSubject: RE: NSAID Spoke with patient's mother and she understood, to only take the daypro and stop the ibuprofen. Normal [facility] Coding Summary.on 07-22-2017 Coding Summary. CODING DATE: 018 FINAL [facility] [place] STATUS: Home (Routine DC) PAYOR: Medicaid EAPG DESCRIPTION 0663 PAIN ADMIT DX: REASON FOR VISIT DX: M54.5 Low back pain FINAL DX: PRINCIPAL: G89.29 Other chronic pain SECONDARY: M54.5 Low back pain Z79.1 intermediate (current) use of non-steroidal anti-inflammatories (NSAID) PYMT PROC EAPG STAT DESCRIPTION DOCTOR NAME DATE NOTE: The code number assigned matches the documented diagnosis and / or procedure in the patient's chart. However, the narrative phrase printed from the coding software may appear abbreviated, or result in slightly different terminology. Coded By: Vivian Nolan Date Saved: 07/22/2017 07:39 am [facility] Consultation Noteon 07-21-19 Consultation Note HOSPITAL REGULATIONS : ALL Positive Important Negative Findings Shall Be Recorded.Date of 07/15/2017Consultation: Attending Duane Bansal D.O.Physician:Isadora Ho M.D.Physician:CHIEF COMPLAINT: Low back pain.HISTORY OF PRESENT ILLNESS: This is a 16 year old female with chronic lowback pain persistent despite regular use of Ibuprofen and significantamounts of physical therapy. She and her mother are here to review hermagnetic resonance imaging results and discuss further treatment plan. Thepain is described as sharp and shooting. She rates it as a 6/10. Any sortof prolonged standing, walking, sitting exacerbates the pain. Nothingseems to help much. Pain does not radiate into the lower extremities,occasionall y she gets some twinges around the left thigh region.Past medical history, family history, surgical history, psychosocialhistory, medication list, allergies and a complete review of systems wereobtained and reviewed. Pertinent findings are noted in the HISTORY OFPRESENT ILLNESS.PHYSICAL EXAMINATION: No acute distress, alert and oriented times three.Pain with range of motion of the lumbar spine in all planes. No grossdeformities. There is significant tenderness in the lumbar paraspinalmuscles and over the facet joints.IMAGING STUDIES: I personally reviewed the magnetic resonance imaging ofthe lumbar spine which is within normal limits. No significant discderangements, no findings suggestive of any pars fracture or defect.ASSESSMENT/PLAN: A 16 year old female with persistent chronic low backpain that is likely either facet-mediated or myofascial in origin. Ibelieve it important at this point to differentiate the source of the pain.I suggested to the patient and her mother diagnostic facet medial branchblocks to the lower lumbar facet joints. A detailed description of theprocedure including risks, benefits and alternatives were discussed. Theyboth wished to proceed as soon as possible. Follow up one to two weeksafter the injection, call the Clinic with any questions or concerns.Moe Ho M.D.aekDictated: 07/15/2017 #[id number]: 07/21/2017 #[id number]: Devonte An M.D. [facility] Comment on above: Result Comment: Elec tronically Signed By: Georgia MUNOZ, Moe Freeman\.br\Date and Time Signed: 07/21/17 11:15 EST Message - General Officeon 0 07-20-2017 Message - General Office om: Krys Rivas To: [facility] Pain Clerical Inbox; Sent: 07/20/2017 09:44:23 ESTSubject: reschedule injection Called patients mother and rescheduled injection from 07-28-17 to 07-26-17 call with arrival time. She verbalized understanding. [facility] Message - General Officeon 1 09-07-2016 Message - General Office om: Savannah Robles RN To: Savannah Robles RN; Sent: 07/07/2017 10:46:57 ESTSubject: General Message Pt's mother called in requesting general info on types of procedures and treatment offered. Mother reports they have follow-up appintment 07-15-17. Mother reports pt is hesitant to have procedures done and wondered if they should keep follow-up appointment. Mother given general info on types of injections but informed that if she keeps follow up appoitnment Dr. Ho could discuss specific plan of care for her daughter. mother reports she will keep the follow up appointment . [facility] Message - General Officeon 1 08-31-2016 Message - General Office Fr om: Marita Page ([facility] Pain Pending Procedure Prior Authorizations) To: [facility] Pain Pending Record Request; Sent: 06/24/2017 13:38:52 ESTSubject: MRI report /[employer] Due Date/Time: 06/28/2017 13:38:00 EST patient's mom called requested next step in care plan Raeann had her Lumbar MRI on 06/18/2017 I looked in patients chart an no MRI scanned , so I called [facility] and requested MRI report be faxed to me, I spoke with Shalini and she is faxing it right over, I explained to mom that it she didnt hear anyhting by Wednesday to please give us a call back. I gave her my direct line. Mom verbally understood --------From: Marita Page ([facility] Pain Pending Record Request) To: Moe Ho MD; Sent: 06/24/2017 14:24:09 ESTSubject: Lumbar MRI results Due Date/Time: 06/24/2017 14:24:00 EST please review and advise next step in care plan --From: Moe Ho MD To: [facility] Pain Pending Record Request; Sent: 06/24/2017 15:12:40 ESTSubject: RE: Lumbar MRI results MRI results reviewed. MRI is negative for any disc issues and no fractures. I recommend bilateral L4/5 and L5/S1 facet blocks. If the patient or her mother has more questions they should come in for a FUV. thanks ----From: Crystal Mejía RN ([facility] Pain Pending Record Request) To: [facility] Pain Nursing Inbox; Sent: 06/24/2017 16:05:20 ESTSubject: RE: Lumbar MRI results Attempted to contact patient's mom, Smita, to tell her results of MRI and offer her the injection recommended by Dr. Ho or schedule a F/U to discuss MRI results and plan of care. Phone # available was not receiving calls at this time, unable to leave a message. ------From: Sherlyn Bat Lathe OperatorJody Mesa ([facility] Pain Nursing Inbox) To: [facility] Pain Shirt Trimmer; Sent: 06/25/2017 11:00:01 ESTSubject: Injection B/L L4-L5 L5-S1 facet block Called and spoke to patients mother, she said she would like to move forward with injection. Discussed and explained injection to the parent, told her it would have to get approved by the insurance company. I also explained that I was not sure if [employer] med[employer] covered anethesia but they could pay for it if not covered. Mother is requesting a return telephone call to discuss precert and cost of anethesia. --------From: Marita Page ([facility] Pain Shirt Trimmer) To: [facility] Pain Clerical Inbox; Sent: 06/28/2017 09:55:28 ESTSubject: [place] [facility] no auth required DX M47.816/FIJ ---------From: Yennifer Pack ([facility] Pain Clerical Inbox) To: [facility] Pain Clerical Inbox; Sent: 06/28/2017 11:19:35 ESTSubject: RE: [place] Called patient's mom to schedule patient. Mom had some questions about anesthesia. Mom and patient are going to think about have procedure with or without anesthesia and call us back to schedule injection. --------From: Ricci Buchanan ([facility] Pain Clerical Inbox) To: [facility] Pain Clerical Inbox; Sent: 06/30/2017 11:24:49 ESTSubject: Scheduled Follow-up Patient's mother called and said her daughter has a lot of questions about getting the shot and would like to make a clinic appointment to discuss with Dr. Ho before scheduling injection. Scheduled appointment for 07-15-17 at [facility] Message - General Officeon 1 08-15-2016 Message - General Office Fr om: Krys Rivas To: [facility] Pain Shirt Trimmer; Sent: 05/27/2017 13:27:21 ESTSubject: [place] - Prior Auth - 05/27/17 ------From: Marita Page ([facility] Pain Shirt Trimmer) To: [facility] Pain Pending Procedure Prior Authorizations; Sent: 05/27/2017 15:13:38 ESTSubject: [place]/office notes needed Due Date/Time: 05/31/2017 15:13:00 EST requested office notes will need before I can fax prior auth to [facility] for MRI prior auth --From: Marita Page ([facility] Pain Pending Procedure Prior Authorizations) To: [facility] Pain Pending Procedure Prior Authorizations; Sent: 05/31/2017 11:41:56 ESTSubject: [place]/pending MRI-[facility] Due Date/Time: 06/08/2017 11:41:00 EST faxed office notes, Lumbar xray to [facility] for prior auth of Lumbar MRI care plan 05/27/2017 --------From: Marita Page ([facility] Pain Pending Procedure Prior Authorizations) To: [facility] Pain Pending Procedure Prior Authorizations; Sent: 06/08/2017 11:50:16 ESTSubject: [place]/pending MRI-[facility] Due Date/Time: 06/14/2017 11:50:00 EST still pending as of today ---From: Marita Page ([facility] Pain Pending Procedure Prior Authorizations) To: [facility] Pain Pending Procedure Prior Authorizations; Sent: 06/09/2017 08:52:12 ESTSubject: MRI approval called and left message on voicemail that MRI has been approved and will need to call [facility] central scheduling at [phone] before auth exp 06/30/2017[employer] letter of approval scanned to [place] [id number] exp 06/30/2017 --------From: Marita Page ([facility] Pain Shirt Trimmer) To: [facility] Pain Clerical Inbox; Sent: 06/11/2017 10:54:12 ESTSubject: 2nd call approved MRI Due Date/Time: 06/14/2017 10:54:00 EST patient's mom called and wanted MRI done at [facility] since they live in [place], Faciltity has been updated and [facility] and both are non working numbers , will need to attempt to call them Wednesday06/14/2017 -------From: Jessica Dsouza ([facility] Pain Clerical Inbox) To: [facility] Pain Clerical Inbox; Sent: 06/14/2017 08:30:21 ESTSubject: RE: 2nd call approved MRI Called patient, spoke to her mom and let her know the order has been faxed to [facility] Consultation Noteon 06-02-20 17 Consultation Note HOSPITAL REGULATIONS : ALL Positive Important Negative Findings Shall Be Recorded.Date of 05/27/2017Consultation: Attending Duane Bansal D.O.Physician:Isadora Ho M.D.Physician:NEW PATIENT EVALUATIONCHIEF COMPLAINT: Low back pain.HISTORY OF PRESENT ILLNESS: 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 The pain has persistent. It does fluctuate in intensity anywherefrom a 4-9/10. Prolonged sitting or lying flat seems to worsen the pain.Changing positions seems to help. The pain does not radiate into the lowerextremities. She denies any subjective weakness in the lower extremities.She has no difficulty standing or walking. Treatments have includedphysical therapy without relief, regular use of ibuprofen without relieffor several months. She did undergo an x-ray of the lumbar spine which wasread as basically normal. The patient's mother states that she is having adifficult time with schoolwork as the patient is home schooled because thepatient cannot sit for a prolonged period of time. They are here todiscuss further treatment options and to really find out what is going onas far as the source of pain that is concerned.Past medical history, family history, surgical history, social history,medication list, allergies and a complete review of systems were obtainedand reviewed. Pertinent findings are noted in the HISTORY OF PRESENTILLNESS.PHYSICAL EXAMINATION:Constitutio nal: No acute distress, well nourished, well developed.Eyes: No exudate or deformity. Extraocular muscles are intact.Ears, nose, mouth and throat: Ears and nose are without deformity.Normal-appear ing tongue and teeth.Neck: No noticeable masses, tracheal deviation or asymmetry. Nothyromegaly on inspection.Respiratory: No gasping or shortness of breath. No accessory muscle use.Cardiovascular: Pulses in extremities are palpable. No noticeable lowerextremity edema or varicosities.Gastrointe stinal: No distention, no pain with palpation.Lymphatic: No supraclavicular or paracervical lymphadenopathy noted.Skin: Inspection of skin reveals no rashes, lesions or ulcers. Normalskin turgor.Psychiatric: Oriented to time, place and person. Normal mood and affect.Musculoskeletal: Limited range of motion in all planes in the lumbarspine. No gross abnormalities or asymmetry noted. Diffusely tender inthe lower lumbar facet region to palpation. Hips show good range of motionwithout pain as do the knees.Neurologic: 5/5 strength throughout bilateral lower extremities. Intactreflexes throughout bilateral lower extremities.ASSESSMENT/ PLAN: This is a 16-year-old female with now chronic low backpain, a history of acute onset and also a history of being an avid gymnast.I suspect that she likely has a pars issue in the lower lumbar spine, mostlikely a stress reaction. For further assessment though, I would like toobtain an MRI of the lumbar spine with [facility] to assess forinflammation in that region. I discussed the likelihood of the source ofthe pain with the patient and her mother today. They voiced agreement andwill go ahead with the MRI. I will see them back once the MRI is completeto review imaging studies. The other possibility is that she has a discrelated problem although this is less likely due to the pattern of pain andpatient's history as well as age. The patient and her mother agree withthe above-noted treatment plan. They were invited to call the clinic withany questions or concerns. Continue ibuprofen use, ice and changingpositions for the time being to manage the pain.Moe Ho M.D.glsDictated: 05/27/2017 #[id number]: 05/28/2017 #[id number]: Devonte An M.D. [facility] Comment on above: Result Comment: Elec tronically Signed By: Moe Ho MD\.br\Date and Time Signed: 06/02/17 13:15 EST Coding Summary.on 05-31-2017 Coding Summary. 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 However, the narrative phrase printed from the coding software may appear abbreviated, or result in slightly different terminology. Coded By: Alida Lopez Date Saved: 05/31/2017 08:19 am [facility] Vital Signs Date Time Vital Sign Value Performing Clinician Karishma strauss 08-11-2023 15:00-0500 Body weight 78.29 kg Obie Leos Other [facility] Other 08-11-2023 15:00-0500 SaO2% (BldA) [Mass fraction] 99 % Obie Leos Other [facility] Other Encounters Encounter Date Encounter Type Care Provider Facility Start: 10-31-2023 End: 10-31-2023 ambulatory IGOR DOWNEY Not Available Start: 09-30-2023 End: 09-30-2023 ambulatory DUANE BANSAL Not Available Start: 08-11-2023 End: 08-11-2023 ambulatory Duane Bansal Facility:[facility] Start: 08-11-2023 End: 08-11-2023 Patient encounter procedure DO Duane Bansal Work Phone: [facility] [place] Work Phone: Start: 08-11-2023 End: 08-11-2023 ambulatory DO Duane Bansal Work Phone: [facility] Work Phone: Start: 08-11-2023 Office consultation new/estab patient 60 min Obie Leos [facility] Start: 08-07-2023 End: 08-07-2023 ambulatory JACOBY GONSALEZ Not Available Start: 08-05-2023 End: 08-05-2023 ambulatory LAZARO SANTIAGO Not Available Start: 06-24-2023 End: 06-24-2023 ambulatory DUANE BANSAL Not Available Start: 06-02-2021 End: 06-02-[address] OLIVER MEJÍA Facility: Start: 11-14-2020 End: 11-14-[address] DUANE BANSAL Facility: Start: 08-12-2017 End: 08-13-2017 Ambulatory Moe Ho Facility:[facility] Start: 07-26-2017 End: 07-27-2017 Ambulatory Moe Ho Facility:[facility] Start: 07-15-2017 End: 07-16-2017 Ambulatory Moe Ho Facility:[facility] Start: 05-27-2017 End: 05-28-2017 Ambulatory Moe Ho Facility:[facility] Procedures Date Procedure Procedure Detail Performing Clinician Start: 08-11-2023 X-ray of lumbar spin e, four views DO Duane Bansal Work Phone: Payers Date Payer Category Payer Self-pay [id number] 2022 Medicaid [id number] 2002 Unknown [id number] 2.16.84 [id number] 2002 Unknown [id number] 2.16.84 [id number] 2002 Unknown [id number] 2.16.84 [id number] 2002 Unknown [id number] 2.16.84 [id number] 2002 Unknown [id number] 2.16.84 [id number] 2002 Unknown [id number] [id number] 1980 Unknown [id number] 2.16.84 [id number] 1959 Unknown [id number] 1959 Unknown [id number] Medicaid [employer] [id number] Unknown [id number] 2.16.8 [id number] Social History Date Type Detail Facility Tobacco smoking status LAIS Unknown if ever smoked [place] Work Phone: Start: 2002 Sex Assigned At Female F [facility] Sex Assigned At Sex Assigned At Bir th [facility] Other Evaluation note 08-11-2023 Note Date & Type Note Facility 08-11-2023 Evaluation note Encounter Date Diagnosis Assessment Notes Jul, Chronic pain (ICD-10 - G89.29) Follow up after imaging and physical therapy. Jul, Sacroiliitis (ICD-10 - M46.1) 22 year old female presents with complaints of low back pain, denying radicular symptoms. She states pain started 8 years ago, with no known inciting trauma. Prior to examining the patient I reviewed recent progress notes from the referring provider, Dr. Bansal. History and physical examination are consistent with sacroiliitis. Discussed with patient different treatment options, I recommend proceeding with physical therapy for core muscle strengthening. In the meantime I will order flex/ext views of the lumbar spine. She is encouraged to follow up in 4-6 weeks. Jul, Back pain (ICD-10 - M54.9) Proceed with treatment plan. Jul, Other Medical decision making shows a new problem to me with further workup planned or suggested with the potential for extensive treatment options that were considered with the most applicable given this patient's situation as noted above. Treatment options considered include a combination of physical therapy approaches, pharmacologic management, and interventional procedures. Those most applicable to the patient were discussed at this time. Risk of complications and/or morbidity and mortality is high given that acute and chronic pain poses a threat to life and bodily function if undertreated, poorly treated or with failure to maintain adequate treatment and timely followup. Given the serious and fluctuating nature of pain with extensive consideration for whenever pain changes, there always remains the possibility of prolonged functional impairment requiring constant patient reassessment and high-level medical decision making. The amount and complexity of data reviewed is high given that patient labs, radiology reports, and other test were obtained, reviewed and summarized as applicable from the physician portal and/or outside medical records. Pertinent positive and negative findings were considered in medical decision-making. [facility] Other Evaluation note Note Date & Type Note Facility Evaluation note No assessment information availa [facility] Work Phone: Summary Purpose Family History No Family History Records FoundNo Family History Records FoundNo Family History Records FoundNo Family History Records Found Advance Directives No Advanced Directives Records Found Advance Directive Response Recorded Date/ Time Advance Directives No June 14, 2017 2:37pm Chief Complaint and Reason for Visit Chief Complaint M46.1 G89.29 M54.9 Additional Source Comments INFORMATION SOURCE (unrecogn ized section and content) DATE CREATED AUTHOR 12/31/2017 [facility] DATE CREATED AUTHOR AUTHOR'S ORGANIZ ATION 06/26/2021 [facility] DATE CREATED AUTHOR AUTHOR'S ORGANIZ ATION 08/12/2023 [facility] DATE CREATED AUTHOR AUTHOR'S ORGANIZ ATION 10/31/2023 [facility] [employer] Care Teams (unrecognized sec tion and content) Team Status: Active Member Role Status Dates Duane Bansal DO Primary Care Provider Active Team Status: Inactive Member Role Status Dates Duane Bansal DO Primary Care Provider Active St art: August 11, 2023 End: August 11, 2023 Obie Leos MD Attending Provider Active Sta rt: August 11, 2023 End: August 11, 2023 Goals (unrecognized section and content) Goals may be documented in a n alternate sectionNo Information REASON FOR VISIT (unrecogniz ed section and content) REFF BY DUANE BANSAL, CONSULT FOR NEUROPATHIC PAIN, CHRONIC BILATERAL LOW BACK PAIN WITHOUT SCIATICA FOR RECORDS PERTAINING TO PATIENTS WHO ARE OR HAVE BEEN ENROLLED IN A CHEMICAL DEPENDENCY/SUBSTANCEABUSE PROGRAM, SOME INFORMATION MAY BE OMITTED. This clinical summary was aggregated from multiple sources. Caution should be exercised in using it in the provision of clinical care. This summary normalizes information from multiple sources, and as a consequence, information in this document may materially change the coding, format and clinical context of patient data. In addition, data may be omitted in some cases. CLINICAL DECISIONS SHOULD BE BASED ON THE PRIMARY CLINICAL RECORDS. [employer] [facility]. provides no warranty or guarantee of the accuracy or completeness of information in this document.
--- NOTE | 2024-01-12 20:30 | ED.FEMALEGU1 ---
HPI - Female Genitourinary General Chief complaint: Urogenital-Female Stated complaint: UTI Time Seen by Provider: 01/12/24 20:23 Source: patient Mode of arrival: walk-in History of Present Illness HPI Narrative: 23 year old female presents to the ED for dysuria, urinary frequency/urgency. Onset was 2 days ago. Reports hx UTIs. Denies fever, chills, abd pain, flank pain, hematuria. Denies N/V/D. Denies chance of . Denies STD concern. Reports negative STD testing about 2 months ago. Denies vaginal discharge, lesions, rash. Related Data Previous Rx's ?Medication ?Instructions ?Recorded cyclobenzaprine 10 mg tablet 10 mg PO TID PRN muscle spasm #20 05/29/23 tabs ibuprofen 800 mg tablet 800 mg PO Q8H PRN pain #20 tabs 05/29/23 ciprofloxacin HCl 500 mg tablet 500 mg PO Q12H #10 tabs 01/12/24 (Cipro) phenazopyridine 200 mg tablet 200 mg PO TID PRN pain #6 tabs 01/12/24 (Pyridium) Allergies Allergy/AdvReac Type Severity Reaction Status Date / Time Penicillins Allergy Mild Hives Verified 05/29/23 17:00 Review of Systems ROS Constitutional Denies: fever or chills Cardiovascular Denies: chest pain Respiratory Denies: shortness of breath Gastrointestinal Denies: abdominal pain, nausea, vomiting or diarrhea Genitourinary Reports: painful urination, urinary frequency and urinary urgency; Denies: urinary incontinence, blood in urine or pelvic pain Musculoskeletal Denies: back pain PFSH PFSH Social History Smoking status: Never smoker Exam Constitutional Vital Signs, click to edit/add: Last Vital Signs Temp 98.5 F 01/12/24 20:21 Pulse 78 01/12/24 20:57 Resp 16 01/12/24 20:57 BP 131/72 01/12/24 20:21 Pulse Ox 99 01/12/24 20:57 O2 Del Method Room Air 01/12/24 20:57 Common normals: no apparent distress and oriented x3 General appearance: cooperative Eye Common normals: conjunctivae normal and no scleral icterus Neck & C-Spine Common normals: supple Chest Chest: symmetrical chest wall rise Respiratory Common normals: normal respiratory effort Effort & inspection: able to speak in complete sentences Cardio Common normals: regular rate and regular rhythm GI Common normals: Normal to inspection, nondistended, normoactive bowel sounds present, soft to palpation and non-tender Neuro Common normals: oriented x3 Sensorium/orientation: awake and alert Speech: speech normal Course Vital Signs Vital signs: Vital Signs Temperature 98.5 F 01/12/24 20:21 Pulse Rate 90 01/12/24 20:21 Respiratory Rate 16 01/12/24 20:21 Blood Pressure 131/72 01/12/24 20:21 Pulse Oximetry 100 01/12/24 20:21 Oxygen Delivery Method Room Air 01/12/24 20:21 Temperature 98.5 F 01/12/24 20:21 Pulse Rate 78 01/12/24 20:57 Respiratory Rate 16 01/12/24 20:57 Blood Pressure 131/72 01/12/24 20:21 Pulse Oximetry 99 01/12/24 20:57 Oxygen Delivery Method Room Air 01/12/24 20:57 MDM - Female Genitourinary MDM Narrative Medical decision making narrative: Urinalysis was unremarkable. Pt reported hx frequent UTIs. She reported dysuria. Stated she tested negative for STDs about 2 months ago and denied concern. Urine culture, GC/chlamydia were pending. Prescriptions were provided for Pyridium and Cipro. Pt requested Cipro. Follow up with cpp for a recheck, further evaluation and treatment. Differential Diagnosis Differential diagnosis: Likely urinary tract infection and cystitis Medical Records Attestation: I reviewed the patient's medical records. Lab Data Attestation: I reviewed the patient's lab results. Labs: Lab Results 01/12/24 Range/Units 20:25 Urine Color Lt. yellow (YELLOW) Urine Clarity Clear (CLEAR) Urine pH 7.5 (5.0-9.0) Ur Specific [place] 1.015 (1.005-1.025) Urine Protein Negative (NEG/TRACE) mg/dL Urine Glucose (UA) Negative (NEGATIVE) mg/dL Urine Ketones Negative (NEGATIVE) mg/dL Urine Occult Blood Negative (NEGATIVE) Urine Nitrite Negative (NEGATIVE) Urine Bilirubin Negative (NEGATIVE) Urine Urobilinogen 0.2 (0.2-1.0) EU/dL Ur Leukocyte Esterase Negative (NEGATIVE) Urine HCG, Qual Negative (NEGATIVE) Discharge Plan Discharge Stand Alone Forms: Portal Instructions Chief Complaint: Urogenital-Female Clinical Impression: Dysuria Patient Disposition: Home, Self-Care Time of Disposition Decision: 20:47 Condition: Good Mode of Transportation: Private Vehicle Prescriptions / Home Meds: New ciprofloxacin HCl [Cipro] 500 mg tablet 500 mg PO Q12H Qty: 10 0RF phenazopyridine [Pyridium] 200 mg tablet 200 mg PO TID PRN (Reason: pain) Qty: 6 0RF No Action cyclobenzaprine 10 mg tablet 10 mg PO TID PRN (Reason: muscle spasm) Qty: 20 0RF ibuprofen 800 mg tablet 800 mg PO Q8H PRN (Reason: pain) Qty: 20 0RF Print Language: Australian Instructions: Dysuria (ED) Referrals: GILES BANSAL [Primary Care Provider] - 1 week Discharge Date/Time: 01/12/24 20:57
[2024-01-12 20:31] LABS: Bilirubin Urine NEGATIVE (NEGATIVE); Blood Urine NEGATIVE (NEGATIVE); Clarity Urine CLEAR (CLEAR); Color Urine LT. YELLOW (YELLOW); Glucose Urine UA NEGATIVE (NEGATIVE); Ketones Urine NEGATIVE (NEGATIVE); Leukocyte Esterase Urine NEGATIVE (NEGATIVE); Nitrite Urine NEGATIVE (NEGATIVE); Protein Urine NEGATIVE (NEG/TRACE); Specific Gravity Urine 1.015 (1.005-1.025); Urobilinogen Urine 0.2 EU/dL (0.2-1.0); pH Urine 7.5 (5.0-9.0)
[2024-01-12 20:32] LABS: Urine Microscopic Indicated NO
[2024-01-12 20:43] LABS: HCG Qualitative Urine* NEGATIVE (NEGATIVE); Internal Control Within Normal Limits
[2024-01-12] MEDS: CIPROFLOXACIN HCL 500 MG TABLET PO (20:49)
[2024-01-12] MEDS: PHENAZOPYRIDINE 100 MG TABLET PO (20:49)
[2024-01-12 20:57] VITALS: PULSE 78; O2SAT 99
[2024-01-17 21:07] LABS: Neisseria gonorrhoeae, NAA Negative (Negative)
== END 2024-01-12 20:57 | disposition home or self-care (01) ==
PROVIDERS: Nurse Practitioner Family; Emergency Provider Internal Medicine; PCP Family Medicine
DX: R30.0 Dysuria (principal); Z87.440 Personal history of urinary (tract) infections
CPT/HCPCS: 81003; 84703; 87086; 87491; 87591; 99283